=== PATIENT | female | born 1970 | race Caucasian/White ===

== ENCOUNTER 2020-08-17 05:43 | Inpatient (IN) ==
[2020-08-10 15:57] LABS: Basophils % 0.5 % (0.0-0.8); Eosinophils # 0.1 10*3/uL (0.0-0.87); Eosinophils % 1.3 % (0.00-10.9); Hematocrit 35.6 VOL% (35.7-47.0); Hemoglobin 11.4 GM/DL (12.0-16.0); Immature Granulocytes % 0.3 %; Immature Granulocytes Absolute 0.02 #; Lymphocytes # 1.3 10*3/uL (1.4-4.0); Lymphocytes % 20.7 % (21.3-54.2); Mean Corpuscular Volume 78.4 FL (87-102); Mean Platelet Volume 12.1 FL (9.6-12.0); Monocytes % 6.5 % (1.7-12.7); Neutrophils % 70.7 % (38.7-73.9); Platelet Count 229 T/CUMM (130-400); Red Blood Count 4.54 MC/CUMM (3.8-5.5); Red Cell Distribution Width 14.7 % (9.3-17.3); White Blood Count 6.2 T/CUMM (4-12)
[2020-08-10 16:03] LABS: Amorphous Crystals,Urine Few /HPF (Few); Bacteria,Urine Occasional /HPF (Few); Bilirubin,Urine Negative (Negative); Blood, Urine Negative (Negative); Glucose,Urine (UA) 50 mg/dL (Negative); Ketones,Urine Negative (Negative); Mucus,Urine Occasional /LPF (Occasional); Nitrite,Urine Negative (Negative); Protein,Urine Negative; Squamous Epithelial Cell,Urine Occasional /HPF (0-10); Urine Appearance CLOUDY (Clear); Urine Color Yellow (Yellow); Urine Specific Gravity 1.018 (1.001-1.035); Urine Urobilinogen < 2.0 EU/DL (0.2-1.0)
[2020-08-10 16:09] LABS: Calcium 9.3 MG/DL (8.5-10.1); Osmolality,Calculated 281.4 MOS/KG (273-304); Potassium 4.5 MMOL/L (3.5-5.1)
[2020-08-10 16:10] LABS: INR 0.9; PT Patient Result 9.8 SECS (9.8-11.9); Partial Thromboplastin Time 23.3 SECS (23.9-33.8)
[2020-08-17] MEDS ORDERED: LACTATED RINGERS 1,000 ML IV SCH ×2 (06:00→10:00)
[2020-08-17] MEDS ORDERED: ACETAMINOPHEN 500 MG TABLET PO ONE (06:00)
[2020-08-17] MEDS ORDERED: GABAPENTIN 400 MG CAPSULE PO ONE (06:00)
[2020-08-17] MEDS ORDERED: SUFentanil 50 MCG/ML AMP ONE (06:25)
[2020-08-17] MEDS ORDERED: ceFAZolin 1,000 MG in SYRINGE 1 EACH IV ONE (06:30)
[2020-08-17] MEDS ORDERED: LIDOCAINE 2% 5 ML VIAL ONE (06:36)
[2020-08-17] MEDS ORDERED: ROCURONIUM 50 MG/5 ML VIAL IV ONE ×2 (06:36→07:59)
[2020-08-17] MEDS ORDERED: propofoL 200 MG/20 ML VIAL IV ONE ×2 (06:36→07:59)
[2020-08-17] MEDS ORDERED: LACTATED RINGERS 1,000 ML IV ONE ×2 (06:37→09:01)
[2020-08-17] MEDS ORDERED: SEVOFLURANE 1 UNIT/15 MINUTE INH ONE ×2 (06:37→09:00)
[2020-08-17] MEDS ORDERED: PANTOPRAZOLE 40 MG TABLET PO ONE (06:49)
[2020-08-17] MEDS ORDERED: SCOPOLAMINE 1.5 MG PATCH TRANSDERM ONE (06:49)
[2020-08-17] MEDS ORDERED: MIDAZOLAM 2 MG/2 ML VIAL ONE (07:12)
[2020-08-17] MEDS ORDERED: ESMOLOL 100 MG/10 ML VIAL IV ONE (07:16)
[2020-08-17] MEDS ORDERED: INDIGO CARMINE 5 ML AMP ONE (08:51)
[2020-08-17] MEDS ORDERED: FUROSEMIDE 20 MG/2 ML VIAL ONE (08:51)
[2020-08-17] MEDS ORDERED: PROMETHAZINE INJ 25 MG in SODIUM CHLORIDE 0.9% 50 ML IV PRN (09:29)
[2020-08-17] MEDS ORDERED: diphenhydrAMINE 50 MG/1 ML VIAL IV PRN (09:29)
[2020-08-17] MEDS ORDERED: ONDANSETRON 4 MG/2 ML VIAL IV PRN (09:29)
[2020-08-17] MEDS ORDERED: MEPERIDINE 25 MG/1 ML VIAL IV PRN (09:29)
[2020-08-17] MEDS ORDERED: BISACODYL 10 MG SUPP RECTAL PRN (09:44)
[2020-08-17] MEDS ORDERED: BENZOCAINE/MENTHOL LOZENGE 18/BOX PO PRN (09:44)
[2020-08-17] MEDS ORDERED: ACETAMINOPHEN 325 MG TABLET PO PRN (09:44)
[2020-08-17] MEDS ORDERED: MAGNESIUM HYDROXIDE SUSP 30 ML UDCUP PO PRN (09:44)
[2020-08-17] MEDS: HYDROmorphone 2 MG/1 ML VIAL IV PRN ×6 (09:45→10:04)
[2020-08-17 10:00] LABS: Bacteria,Urine Occasional /HPF (Few); Bilirubin,Urine Negative (Negative); Blood, Urine Negative (Negative); Glucose,Urine (UA) 50 mg/dL (Negative); Ketones,Urine Negative (Negative); Mucus,Urine Occasional /LPF (Occasional); Nitrite,Urine Negative (Negative); Protein,Urine Negative; RBC,Urine 1 /HPF (0-4); Squamous Epithelial Cell,Urine Occasional /HPF (0-10); Urine Appearance CLEAR (Clear); Urine Color Yellow (Yellow); Urine Specific Gravity 1.012 (1.001-1.035); Urine Urobilinogen < 2.0 EU/DL (0.2-1.0); WBC,Urine <1 /HPF (0-6)
[2020-08-17] MEDS ORDERED: PROMETHAZINE 25 MG/1 ML VIAL ONE (10:04)
[2020-08-17] MEDS ORDERED: SODIUM CHLORIDE 0.9% 1,000 ML IV SCH (12:00)
[2020-08-17] MEDS: oxyCODONE/ACETAMINOPHEN 5-325 MG TABLET PO PRN ×3 (12:30→23:54)
[2020-08-17] MEDS: KETOROLAC 30 MG/1 ML VIAL IV PRN ×2 (13:06→19:38)
[2020-08-17] MEDS: ceFAZolin 1,000 MG in SYRINGE 1 EACH IV SCH ×2 (15:55→23:47)
[2020-08-17] MEDS: ONDANSETRON 4 MG/2 ML VIAL IV PRN (17:40)
[2020-08-18] MEDS: KETOROLAC 30 MG/1 ML VIAL IV PRN (02:00)
[2020-08-18 05:34] LABS: Basophils % 0.1 % (0.0-0.8); Eosinophils % 0.1 % (0.00-10.9); Hematocrit 32.5 VOL% (35.7-47.0); Hemoglobin 10.3 GM/DL (12.0-16.0); Immature Granulocytes % 0.4 %; Immature Granulocytes Absolute 0.04 #; Lymphocytes # 1.1 10*3/uL (1.4-4.0); Mean Corpuscular HGB Conc 31.7 GM/DL (32-36); Mean Corpuscular Volume 81.3 FL (87-102); Mean Platelet Volume 11.8 FL (9.6-12.0); Monocytes % 8.5 % (1.7-12.7); Neutrophils % 79.9 % (38.7-73.9); Platelet Count 230 T/CUMM (130-400); Red Cell Distribution Width 14.8 % (9.3-17.3); White Blood Count 9.5 T/CUMM (4-12)
[2020-08-18] MEDS: oxyCODONE/ACETAMINOPHEN 5-325 MG TABLET PO PRN ×3 (06:29→16:53)
[2020-08-18] MEDS: DOCUSATE SODIUM 100 MG CAPSULE PO PRN (10:11)
[2020-08-18] MEDS: SIMETHICONE CHEW 80 MG TABLET PO PRN (10:11)
[2020-08-18] MEDS: IBUPROFEN 800 MG TABLET PO PRN (10:21)
[2020-08-18] MEDS ORDERED: ONDANSETRON 4 MG TABLET PO PRN (16:42)
[2020-08-18] MEDS: metFORMIN 500 MG TABLET PO SCH (16:53)
[2020-08-18] MEDS ORDERED: PROMETHAZINE 25 MG TABLET PO PRN (18:49)
[2020-08-18] MEDS ORDERED: SCOPOLAMINE 1.5 MG PATCH TRANSDERM ONE (21:00)
[2020-08-19] MEDS: PROMETHAZINE 25 MG/1 ML VIAL IM PRN ×2 (00:07→04:30)
[2020-08-19] MEDS: GABAPENTIN 300 MG CAPSULE PO SCH (00:16)
[2020-08-19] MEDS: CETIRIZINE 10 MG TABLET PO SCH ×2 (00:17→21:45)
[2020-08-19] MEDS: amLODIPine 10 MG TABLET PO SCH ×3 (00:17→21:35)
[2020-08-19] MEDS: IBUPROFEN 800 MG TABLET PO PRN ×2 (01:51→20:31)
[2020-08-19] MEDS: oxyCODONE/ACETAMINOPHEN 5-325 MG TABLET PO PRN ×3 (01:51→20:30)
[2020-08-19] MEDS: LACTATED RINGERS 1,000 ML IV SCH ×3 (06:04→23:05)
[2020-08-19] MEDS ORDERED: METOCLOPRAMIDE 10 MG/2 ML VIAL ONE (06:42)
[2020-08-19 08:32] LABS: Albumin 3.6 G/DL (3.4-5.0); Bilirubin,Total 0.6 MG/DL (0.2-1.0); Calcium 9.7 MG/DL (8.5-10.1); Osmolality,Calculated 273.1 MOS/KG (273-304); Potassium 3.5 MMOL/L (3.5-5.1); Total Protein 7.6 G/DL (6.4-8.2)
[2020-08-19] MEDS: ONDANSETRON 4 MG/2 ML VIAL IV PRN ×3 (11:23→20:07)
[2020-08-19] MEDS ORDERED: PANTOPRAZOLE 40 MG TABLET PO PRN (11:24)
[2020-08-19] MEDS: metFORMIN 500 MG TABLET PO SCH ×2 (11:31→18:20)
[2020-08-19] MEDS ORDERED: METOCLOPRAMIDE 10 MG/2 ML VIAL IV SCH (12:00)
[2020-08-19] MEDS: DOCUSATE SODIUM 100 MG CAPSULE PO PRN (12:26)
[2020-08-19] MEDS: SIMETHICONE CHEW 80 MG TABLET PO PRN (12:27)
[2020-08-19] MEDS: METOCLOPRAMIDE 10 MG/2 ML VIAL IV SCH ×2 (14:23→22:05)
[2020-08-19] MEDS ORDERED: ALUMINUM/MAGNES/SIMETH MAX STR 30 ML UDCUP PO PRN (16:50)
[2020-08-19] MEDS: ALUMINUM/MAGNES/SIMETH MAX STR 30 ML UDCUP PO PRN (20:30)
[2020-08-19] MEDS ORDERED: HYDROmorphone 2 MG/1 ML VIAL IV ONE (20:46)
[2020-08-19] MEDS ORDERED: GABAPENTIN 300 MG CAPSULE PO SCH (21:00)
[2020-08-20] MEDS: ALUMINUM/MAGNES/SIMETH MAX STR 30 ML UDCUP PO PRN ×2 (04:15→20:42)
[2020-08-20] MEDS: ONDANSETRON 4 MG/2 ML VIAL IV PRN ×2 (05:31→15:29)
[2020-08-20] MEDS: METOCLOPRAMIDE 10 MG/2 ML VIAL IV SCH ×3 (06:05→22:51)
[2020-08-20] MEDS: PROMETHAZINE 25 MG/1 ML VIAL IM PRN ×2 (08:27→14:45)
[2020-08-20] MEDS ORDERED: SODIUM PHOSPHATE ENEMA 133 ML BOTTLE RECTAL ONE (11:52)
[2020-08-20] MEDS ORDERED: MAGNESIUM CITRATE 300 ML BOTTLE PO ONE (11:52)
[2020-08-20] MEDS: metFORMIN 500 MG TABLET PO SCH ×2 (11:53→18:18)
[2020-08-20] MEDS: GABAPENTIN 300 MG CAPSULE PO SCH ×2 (11:54→20:42)
[2020-08-20] MEDS: PANTOPRAZOLE 40 MG VIAL IV SCH ×2 (13:22→20:42)
[2020-08-20] MEDS ORDERED: BISACODYL 10 MG SUPP RECTAL PRN (15:44)
[2020-08-20] MEDS: KETOROLAC 30 MG/1 ML VIAL IV PRN (18:26)
[2020-08-20] MEDS: amLODIPine 10 MG TABLET PO SCH (20:41)
[2020-08-20] MEDS: CETIRIZINE 10 MG TABLET PO SCH (20:41)
[2020-08-20] MEDS: DOCUSATE SODIUM 100 MG CAPSULE PO PRN (20:41)
[2020-08-20] MEDS: SIMETHICONE CHEW 80 MG TABLET PO PRN (20:41)
[2020-08-20] MEDS: LACTATED RINGERS 1,000 ML IV SCH (20:55)
[2020-08-21] MEDS ORDERED: LANOLIN 50% CREAM 0.3 OZ TUBE TOP PRN (04:45)
[2020-08-21] MEDS: LACTATED RINGERS 1,000 ML IV SCH ×3 (04:50→20:52)
[2020-08-21] MEDS: METOCLOPRAMIDE 10 MG/2 ML VIAL IV SCH ×3 (06:38→22:49)
[2020-08-21] MEDS: metFORMIN 500 MG TABLET PO SCH ×2 (08:54→18:25)
[2020-08-21] MEDS: PANTOPRAZOLE 40 MG VIAL IV SCH ×2 (09:47→21:05)
[2020-08-21] MEDS: ALUMINUM/MAGNES/SIMETH MAX STR 30 ML UDCUP PO PRN (14:30)
[2020-08-21] MEDS: KETOROLAC 30 MG/1 ML VIAL IV PRN ×2 (14:32→21:04)
[2020-08-21] MEDS: GABAPENTIN 300 MG CAPSULE PO SCH ×2 (15:31→21:03)
[2020-08-21] MEDS: CETIRIZINE 10 MG TABLET PO SCH (21:03)
[2020-08-21] MEDS: amLODIPine 10 MG TABLET PO SCH (21:03)
[2020-08-21] MEDS: oxyCODONE/ACETAMINOPHEN 5-325 MG TABLET PO PRN (22:54)
[2020-08-22] MEDS: LACTATED RINGERS 1,000 ML IV SCH (04:41)
[2020-08-22] MEDS: IBUPROFEN 800 MG TABLET PO PRN (10:05)
[2020-08-22 10:47] VITALS: BP 148/75
[2020-08-22] MEDS: GABAPENTIN 300 MG CAPSULE PO SCH (11:33)
[2020-08-22] MEDS: metFORMIN 500 MG TABLET PO SCH (11:33)
[2020-08-22] MEDS: PANTOPRAZOLE 40 MG VIAL IV SCH (11:33)
[2020-08-22] MEDS: METOCLOPRAMIDE 10 MG/2 ML VIAL IV SCH (11:33)
== END 2020-08-22 11:25 | disposition home or self-care (01) | DRG 742 ==
LOC: N.OR 05:43 → N.SDSINP 05:49 → EDSTATUS 07:30 → N.SDSINP 09:44 → N.OB 10:35
PROVIDERS: ADMIT Specialist; ATTEND Specialist